=== PATIENT | female | born 1965 | race Caucasian/White ===

== ENCOUNTER 2017-09-24 22:31 | Emergency (ER) | payer MEDICAID ==
[2017-09-24 22:49] VITALS: BP 115/47
--- NOTE | 2017-09-24 23:03 | EDM.PDOC ---
ED HPI GENERAL MEDICAL PROBLEM - General Chief Complaint: Lower Extremity Injury/Pain Stated Complaint: INJURED RIGHT BIG TOE Time Seen by Provider: 09/24/17 22:59 Source of Information: Reports: Patient, RN Notes Reviewed History Limitations: Reports: No Limitations - History of Present Illness INITIAL COMMENTS - FREE TEXT/NARRATIVE: 51-year-old female presents to the emergency department with complaint of pain in the right great toe, a large metal object fell out of the closet and landed on her great toe, she does have range of motion of all digits right toe Pain Score (Numeric/FACES): 10 - Related Data Allergies Allergy/AdvReac Type Severity Reaction Status Date / Time Penicillins Allergy Severe anaphylaxis Verified 09/24/17 22:47 cephalexin [Cephalexin] Allergy Intermediate Hives Verified 09/24/17 22:47 Iodinated Contrast- Oral and Allergy Intermediate Hives Verified 09/24/17 22:47 IV Dye [Iodinated Contrast Media - Oral and] chocolate flavor Allergy Mild unknown Verified 09/24/17 22:47 quetiapine [From Seroquel] Allergy Cannot Verified 09/24/17 22:47 Remember tomato Allergy Cannot Verified 09/24/17 22:47 Remember diagnostic x-ray materials Allergy Severe anaphylaxis Uncoded 09/24/17 22:47 chocolate Allergy Cannot Uncoded 09/24/17 22:47 Remember egg shell membrane Allergy unknown Uncoded 09/24/17 22:47 Home Meds: Home Meds Fexofenadine/Pseudoephedrine [Suzan-D 12 Hour] 1 tab PO BID 01/08/13 [History] Gabapentin [Neurontin] 300 mg PO TID 01/08/13 [History] lamoTRIgine [Lamotrigine] 150 mg PO DAILY 11/28/14 [History] ALPRAZolam [Alprazolam] 1 mg PO BID PRN 06/01/17 [History] Cranberry 500 mg PO DAILY 06/01/17 [History] Multivitamin [Multivitamins] 1 each PO DAILY 06/01/17 [History] OLANZapine [Olanzapine] 2.5 mg PO ASDIRECTED PRN 06/01/17 [History] Past Medical History Genitourinary History: Reports: Urinary Incontinence [employer] History: Reports: Dysfunctional Uterine Bleeding Musculoskeletal History: Reports: Fibromyalgia Other Musculoskeletal History: Degenerative joint disease Psychiatric History: Reports: Bipolar, Depression - Infectious Disease History Infectious Disease History: Reports: Chicken Pox, Measles, Mumps - Past Surgical History Female Surgical History: Reports: Hysterectomy Musculoskeletal Surgical History: Reports: Arthroscopic Procedure Social & Family History - Tobacco Use Smoking Status *Q: Current Every Day Smoker Years of Tobacco use: 32 Packs/Tins Daily: 0.2 - Caffeine Use Caffeine Use: Reports: Coffee, Soda - Recreational Drug Use Recreational Drug Use: No Review of Systems - Review of Systems Review Of Systems: See Below Skin: Reports: Bruising ED EXAM, GENERAL - Physical Exam Exam: See Below Free Text/Narrative:: Examination of the great toe I do appreciate some edema as well as some ecchymosis around the great toe it is tender to the touch she has full range of motion of the great toe although limited by pain pedal pulse is +2 sensation is intact Course - Vital Signs Last Recorded V/S: Last Vital Signs Temp 98.8 F 09/24/17 22:48 Pulse 84 09/24/17 22:48 Resp 16 09/24/17 22:48 BP 115/47 L 09/24/17 22:48 Pulse Ox 98 09/24/17 22:48 - Orders/Labs/Meds Orders: Active Orders 24 hr Category Date Time Status Toes Great Toe Rt T5 [CR] Stat Exams 09/24/17 23:01 Taken DME for Discharge [COMM] Per Unit Routine Oth 09/24/17 23:38 Ordered Departure - Departure Time of Disposition: 23:39 Disposition: Home, Self-Care 01 Condition: Good Clinical Impression: Contusion of great toe, right Qualifiers: Encounter type: initial encounter Damage to nail status: without damage Qualified Code(s): S90.111A - Contusion of right great toe without damage to nail, initial encounter - Discharge Information Referrals: Oren Cruz MD [Primary Care Provider] - Forms: ED Department Discharge Additional Instructions: Continue to use hard soled shoe for comfort, Please followup with your primary care provider in 3-5 days if not better, please call return to the emergency department with worsening of symptoms. - My Orders Last 24 Hours: My Active Orders 09/24/17 23:01 Toes Great Toe Rt T5 [CR] Stat 09/24/17 23:38 DME for Discharge [COMM] Per Unit Routine - Assessment/Plan Last 24 Hours: My Active Orders 09/24/17 23:01 Toes Great Toe Rt T5 [CR] Stat 09/24/17 23:38 DME for Discharge [COMM] Per Unit Routine Plan: Assessment Acuity = acute Site and laterality = contusion right great toe Etiology = secondary to trauma Manifestations = none Location of injury = Home Lab values = x-ray great toe I did review films myself I cannot appreciate any acute process, the official read from radiology is pending Plan Placed in a hard soled shoe Tylenol or Motrin as needed for pain control follow- up primary care as needed This note was dictated using [employer] voice recognition software please call with any questions on syntax or grammar.
--- NOTE | 2017-09-25 10:40 | CR ---
Toes Great Toe Rt T5 CLINICAL HISTORY: Pain, trauma FINDINGS: No fracture or dislocation identified. IMPRESSION: Negative
== END 2017-09-24 23:58 | disposition home or self-care (01) ==
LOC: JP.ED 22:31
DX: S90.111A Contusion of right great toe without damage to nail, initial encounter (principal); F17.210 Nicotine dependence, cigarettes, uncomplicated; Z88.0 Allergy status to penicillin; Z91.041 Radiographic dye allergy status; Z88.8 Allergy status to other drugs, medicaments and biological substances; Z88.1 Allergy status to other antibiotic agents; Z91.018 Allergy to other foods; Z91.012 Allergy to eggs; Z79.899 Other long term (current) drug therapy; W20.8XXA Other cause of strike by thrown, projected or falling object, initial encounter
CPT/HCPCS: 73660-26-T5; 73660-T5; 99284

== ENCOUNTER 2017-11-23 19:01 | Emergency (ER) | payer MEDICAID ==
[2017-11-23 20:09] VITALS: BP 110/68
--- NOTE | 2017-11-23 21:28 | EDM.PDOC ---
ED HPI GENERAL MEDICAL PROBLEM - General Chief Complaint: Lower Extremity Injury/Pain Stated Complaint: FELL LAST NIGHT HURT L KNEE Time Seen by Provider: 11/23/17 19:54 Source of Information: Reports: Patient History Limitations: Reports: No Limitations - History of Present Illness INITIAL COMMENTS - FREE TEXT/NARRATIVE: left knee pain: This is a 51-year-old disabled female presents emergency room with concerns of left knee pain. She reports fell at the community room in the [address] yesterday evening. She tried ice, elevation, and rest. The knee is still painful, bruised and swollen. She is worried about a broken knee. She already uses a walker for ambulation due to severe fibromyalgia, pain, and leg pain. Denies any other concerns at this time. Onset Date: 11/22/17 Duration: Day(s):, Constant Location: Reports: Lower Extremity, Left (Left knee) Quality: Reports: Ache, Pressure Severity: Moderate Improves with: Reports: Rest Worsens with: Reports: Movement Context: Reports: Other (Fall at her apartment building) Associated Symptoms: Reports: No Other Symptoms left knee Pain Score (Numeric/FACES): 7 - Related Data Allergies Allergy/AdvReac Type Severity Reaction Status Date / Time Penicillins Allergy Severe anaphylaxis Verified 09/24/17 22:47 cephalexin [Cephalexin] Allergy Intermediate Hives Verified 09/24/17 22:47 Iodinated Contrast- Oral and Allergy Intermediate Hives Verified 09/24/17 22:47 IV Dye [Iodinated Contrast Media - Oral and] chocolate flavor Allergy Mild unknown Verified 09/24/17 22:47 quetiapine [From Seroquel] Allergy Cannot Verified 09/24/17 22:47 Remember tomato Allergy Cannot Verified 09/24/17 22:47 Remember diagnostic x-ray materials Allergy Severe anaphylaxis Uncoded 09/24/17 22:47 chocolate Allergy Cannot Uncoded 09/24/17 22:47 Remember egg shell membrane Allergy unknown Uncoded 09/24/17 22:47 Home Meds: Home Meds Fexofenadine/Pseudoephedrine [Suzan-D 12 Hour] 1 tab PO BID 01/08/13 [History] Gabapentin [Neurontin] 300 mg PO TID 01/08/13 [History] lamoTRIgine [Lamotrigine] 300 mg PO DAILY 11/28/14 [History] Past Medical History HEENT History: Reports: Allergic Rhinitis, Impaired Vision Gastrointestinal History: Reports: Chronic Diarrhea, Diverticulosis, GERD Genitourinary History: Reports: Urinary Incontinence [employer] History: Reports: Dysfunctional Uterine Bleeding, Musculoskeletal History: Reports: Arthritis, Fibromyalgia Other Musculoskeletal History: Degenerative joint disease Psychiatric History: Reports: Bipolar, Depression Endocrine/Metabolic History: Reports: Obesity/BMI 30+ - Infectious Disease History Infectious Disease History: Reports: Chicken Pox - Past Surgical History HEENT Surgical History: Reports: Tonsillectomy GI Surgical History: Reports: Cholecystectomy, Colonoscopy Female Surgical History: Reports: Hysterectomy Musculoskeletal Surgical History: Reports: Arthroscopic Procedure Social & Family History - Tobacco Use Smoking Status *Q: Current Every Day Smoker Years of Tobacco use: 40 Packs/Tins Daily: 0.2 - Caffeine Use Caffeine Use: Reports: Coffee - Recreational Drug Use Recreational Drug Use: No - Living Situation & Occupation Living situation: Reports: Single Occupation: Disabled (Has 4 children all grown, lives alone with her service dog [address].) Review of Systems - Review of Systems Review Of Systems: See Below Constitutional: Reports: No Symptoms Eyes: Reports: No Symptoms Ears: Reports: No Symptoms Nose: Reports: No Symptoms Mouth/Throat: Reports: No Symptoms Respiratory: Reports: No Symptoms Cardiovascular: Reports: No Symptoms GI/Abdominal: Reports: No Symptoms Genitourinary: Reports: No Symptoms Musculoskeletal: Reports: Leg Pain (Left knee pain), Other (Chronic muscle and joint pain. Ambulates with walker.) Skin: Reports: Bruising (Left anterior knee) Neurological: Reports: No Symptoms Psychiatric: Reports: No Symptoms ED EXAM, GENERAL - Physical Exam Exam: See Below Exam Limited By: No Limitations General Appearance: Alert, WD/WN, No Apparent Distress Eye Exam: Bilateral Eye: Other (Wears glasses) Nose: Normal Inspection Head: Atraumatic, Normocephalic Respiratory/Chest: No Respiratory Distress Cardiovascular: Normal Peripheral Pulses Extremities: Joint Swelling (Left knee), Leg Pain (Left knee), Limited Range of Motion ( left knee, unable to flex knee due to pain and swelling. ) Neurological: Alert, Oriented, CN II-XII Intact, Normal Cognition, Normal Gait, Normal Reflexes, No Motor/Sensory Deficits Psychiatric: Normal Affect, Normal Mood Skin Exam: Ecchymosis (Left knee) Lymphatic: No Adenopathy Course - Vital Signs Last Recorded V/S: Last Vital Signs Temp 37.1 C 11/23/17 20:08 Pulse 72 11/23/17 20:08 Resp 20 11/23/17 20:08 BP 110/68 11/23/17 20:08 Pulse Ox 95 11/23/17 20:08 - Orders/Labs/Meds Orders: Active Orders 24 hr Category Date Time Status DME for Discharge [COMM] Routine Oth 11/23/17 21:22 Ordered - Radiology Interpretation Free Text/Narrative:: X-ray of the left knee shows moderate degenerative joint disease, bone spurs, did not appreciate any acute bony injury or fracture. placed in Low wrap and advised to continue use of her walker. Follow-up with primary care for recheck in 7-10 days. Return to ER or urgent care clinic as age worsening of symptoms. Patient agrees with plan of care. Departure - Departure Time of Disposition: 21:22 Disposition: Home, Self-Care 01 Condition: Good Clinical Impression: Knee sprain Qualifiers: Encounter type: initial encounter Involved ligament of knee: unspecified ligament Laterality: left Qualified Code(s): S83.92XA - Sprain of unspecified site of left knee, initial encounter - Discharge Information *PRESCRIPTION DRUG MONITORING PROGRAM REVIEWED*: Not Applicable *COPY OF PRESCRIPTION DRUG MONITORING REPORT IN PATIENT RUTH: Not Applicable Instructions: Knee Sprain, Adult, [id number] Referrals: Oren Cruz MD [Primary Care Provider] - Forms: ED Department Discharge Care Plan Goals: left knee sprain -rest -ice -elevate -use low wrap for comfort -followup in Primary Care for recheck in 7 to 10 days return to Clinic, ER or Urgent Care for any increased pain, redness, swelling or not improved - Problem List & Annotations (1) Knee sprain SNOMED Code(s): 66193151 Code(s): S83.90XA - SPRAIN OF UNSPECIFIED SITE OF UNSPECIFIED KNEE, INIT ENCNTR Status: Acute Priority: Medium Qualifiers: Encounter type: initial encounter Involved ligament of knee: unspecified ligament Laterality: left Qualified Code(s): S83.92XA - Sprain of unspecified site of left knee, initial encounter - Problem List Review Problem List Initiated/Reviewed/Updated: Yes - My Orders Last 24 Hours: My Active Orders 11/23/17 21:22 DME for Discharge [COMM] Routine - Assessment/Plan Last 24 Hours: My Active Orders 11/23/17 21:22 DME for Discharge [COMM] Routine Plan: left knee sprain -rest -ice -elevate -use low wrap for comfort -followup in Primary Care for recheck in 7 to 10 days return to Clinic, ER or Urgent Care for any increased pain, redness, swelling or not improved
--- NOTE | 2017-11-27 08:38 | CR ---
Knee 3V Lt CLINICAL HISTORY: Pain FINDINGS: No acute fracture or dislocation is noted. There are no osseous lesions. There is moderate periarticular and patellar spurring. Bones appear osteopenic. Impression: Osteoarthritis Osteopenia
== END 2017-11-23 21:37 | disposition home or self-care (01) ==
LOC: JP.ED 19:01
DX: S83.92XA Sprain of unspecified site of left knee, initial encounter (principal); F17.210 Nicotine dependence, cigarettes, uncomplicated; Z79.899 Other long term (current) drug therapy; Z88.8 Allergy status to other drugs, medicaments and biological substances; Z91.018 Allergy to other foods; Z88.0 Allergy status to penicillin; Z88.1 Allergy status to other antibiotic agents; Z91.041 Radiographic dye allergy status; Z91.012 Allergy to eggs; W19.XXXA Unspecified fall, initial encounter; Y92.038 Other place in apartment as the place of occurrence of the external cause
CPT/HCPCS: 73562-26-LT; 73562-LT; 99284